=== PATIENT | female | born 1995 | race African-American/Black ===

== ENCOUNTER 2021-04-13 15:02 | Emergency (ER) | payer BC ==
[2021-04-13] MEDS ORDERED: Ibuprofen 200 MG TAB ONE (19:02)
[2021-04-13] MEDS ORDERED: Acetaminophen 500 MG TAB ONE (19:37)
[2021-04-13 20:10] LABS: Bilirubin Neg (Negative); Blood, Urine 25 (Negative); Clarity Clear (Clear); Glucose, Urine (Dipstick) Normal (Negative); Ketone, Urine 150 mg/dL (Negative); Leukocyte Negative (Negative); Nitrite Negative (Negative); Protein, Urine (Dipstick) Negative (Neg-Trace); Specific Gravity, Urine 1.015 (1.002-1.036); Urobilinogen Normal mg/dL (Less than 2)
[2021-04-13 20:11] LABS: Pregnancy Test - Urine (BHCG) Negative (Negative); Pregu Control Background? CLEAR/WHITE (CLR/WHITE); Pregu Control Bar Appear? YES (CONTROL BAR); Specific Gravity 1.015 (1.002-1.036)
[2021-04-13 20:16] LABS: Bacteria/HPF 1+ HPF (None Seen); Mucous/LPF 1+ LPF (<2+); WBC/HPF 0-3 HPF (0-3)
== END 2021-04-13 20:37 | disposition home or self-care (01) ==
LOC: CSHERS 15:02
DX: J06.9 Acute upper respiratory infection, unspecified (principal); Z20.822 Contact with and (suspected) exposure to COVID-19
CPT/HCPCS: 71045; 81003; 81015; 81025; 87804

== ENCOUNTER 2025-02-21 22:31 | Emergency (ER) | payer OTHER, SELFPAY ==
[2025-02-21 22:54] LABS: Glucose, Urine (Dipstick) Normal (Negative); Leukocyte Negative (Negative); Protein, Urine (Dipstick) 15 mg/dl (Neg-Trace); Specific Gravity, Urine 1.020 (1.005-1.030)
[2025-02-21 22:55] LABS: Pregnancy Test - Urine (BHCG) Negative (Negative); Pregu Control Background? CLEAR/WHITE (CLR/WHITE); Pregu Control Bar Appear? YES (CONTROL BAR)
[2025-02-21 23:06] LABS: Bacteria/HPF None Seen HPF (None Seen); CAUTI Indications for Culture Dysuria,urgency,freq; RBC/HPF None Seen HPF (0-3); WBC/HPF None Seen HPF (0-3)
[2025-02-21 23:07] LABS: Urine Culture Reflex No No
[2025-02-22] MEDS ORDERED: cefTRIAXone (ROCEPHIN) 500 MG VIAL ONE (00:03)
== END 2025-02-22 00:29 | disposition home or self-care (01) ==
LOC: CSHERS 22:31
DX: N89.8 Other specified noninflammatory disorders of vagina (principal); E03.0 Congenital hypothyroidism with diffuse goiter
CPT/HCPCS: 81001; 81025; 87086; 87480; 87491; 87510; 87591; 87660; 96372; 99284; J0696